=== PATIENT | female | born 1955 | race Caucasian/White ===

== ENCOUNTER 2021-03-01 15:24 | Inpatient (IN) | payer BC ==
[~2021-03-01] VITALS: Ht 162.6 cm; Wt 64.6 kg
--- OUTSIDE RECORDS SUMMARY | 2021-03-01 15:26 | XMS ---
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 CARE PROVIDERS There are no care providers on record at this time. Marko has no Care Guidelines for this patient. Angela VISIT COUNT (12 MO.) 1 ADONAY Campa TOTAL 1 NOTE: Visits indicate total known visits. ED/UCC VISIT TRACKING (12 MO.) 03/01/2021 15:24 ADONAY Veliz OR TYPE: Emergency COMPLAINT: - COLD SYMPTOMS INPATIENT VISIT TRACKING (12 MO.) No inpatient visits to display in this time frame [email or web address]
[2021-03-01] MEDS ORDERED: ASPIR-TRIN325 MG PO (15:38)
[2021-03-01] MEDS ORDERED: CARVEDILOL25 MG PO (15:38)
[2021-03-01] MEDS ORDERED: NIACIN500 M1 PO (15:38)
[2021-03-01] MEDS ORDERED: METFORMIN HCL1000 MG PO (15:38)
[2021-03-01] MEDS ORDERED: JANUVIA100 MG PO (15:38)
[2021-03-01] MEDS ORDERED: VENTOLIN HFA18 GM INH (15:39)
[2021-03-01] MEDS ORDERED: ALPRAZOLAM1 MG PO (15:39)
--- NOTE | 2021-03-01 18:46 | NUR ---
PT TO THE FLOOR FROM ER VIA STRETCHER. PT ABLE TO SELF TRANSFER TO BED. VSS ON 2L O2. ADMISSION AND ASSESMENT COMPLETE. IV ANTIVIRAL INFUSING PER PROVIDER ORDER. PT RESTING SAFELY IN THE BED W/ CALL LIGHT IN REACH
--- NOTE | 2021-03-01 18:46 | EKG ---
[facility] [address] [place], [place] [address] Signed Normal sinus rhythm Inferior infarct , age undetermined Anterior infarct , age undetermined ST \T\ T wave abnormality, consider lateral ischemia Abnormal ECG No previous ECGs available Confirmed by ARPAN CISNEROS DO ([id number]) on 03/01/2021 6:46:27 PM Electronically Signed By: ARPAN CISNEROS DO 03/01/21 1846 PATIENT NAME: MARCUS CHRISTOPHER Electrocardiogram DATE OF : 59 PHYSICIAN: ARPAN CISNEORS DO REPORT #: [id number] REPORT IS CONFIDENTIAL AND NOT TO BE RELEASED WITHOUT AUTHORIZATION
--- NOTE | 2021-03-01 19:37 | NUR ---
RECEIVED REPORT, PT IS RESTING ON R SIDE FACED AWAY FROM DOOR. RESPIRATIONS ARE EVEN AND NONLABORED. CALL LIGHT IS CLOSE.
--- NOTE | 2021-03-01 20:20 | NUR ---
CALLED PT SON STACEY POSADA BACK HE WANTED AN UPDATE. INFORMED HIM THAT WE WOULD DISCUSS WITH PT AND GET BACK TO HIM HE IS NOT ON THE CONTACT LIST. HE STATES EMILIO POSADA, WHO IS LISTED ON THE FS IS "". ENCOURAGED HIM TO HAVE HIS MOM CHANGE THE LISTING WHEN SHE IS BETTER.
--- NOTE | 2021-03-01 21:30 | NUR ---
DISCUSSED WITH PT, SON'S REQUEST. SHE SAID "I DON'T CARE WHO CALLS, TELL THEM ALL", TOLD PT THAT WE WOULD JUST INFORM HER SON STACEY POSADA, AND HE CAN INFORM OTHER FAMILY MEMBERS. CALLED SON @ [phone], UPDATED HIM. PRIOR TO THIS CALL BACK TO HIM, HE CALLED THE ED AND WAS "SHORT WITH THEM" THEY COULD NOT GIVE HIM ANY INFORMATION, PER BUSINESS SUPPORT PROFESSIONAL YOJANA. INFORMED YOJANA THAT THE CALL WAS MADE.
--- NOTE | 2021-03-01 22:35 | NUR ---
IN ROOM TO ASSESS PT AND ADMINISTER MEDICATIONS. PT DENIES PAIN BUT DOES STATE SHE HAS SOME ACID REFLUX TYPE DISCOMFORT. SHE DENIES SOB AND HAS OCCASIONAL COUGH. LR IS HANGING AND INFUSING FINE. PT STATES SHE HAS FELT DIZZY AT HOME AND FELL BACKWARD WHILE UP TO THE BATHROOM. ADVISED PT TO CALL WHEN SHE NEEDS TO USE THE RESTROOM. BED ALARM IS ON. CALL LIGHT IS CLOSE. PT DENIES FURTHER NEEDS.
--- NOTE | 2021-03-01 23:01 | NUR ---
CALL LIGHT SOUNDED. PT STOOD UP BY SIDE OF BED TO THROW AWAY TRASH. REMINDED PT THAT SHE NEEDS TO CALL AND NOT GET OUT OF BED ON HER OWN. PT STATES UNDERSTANDING AND DENIES FURTHER NEEDS. BED ALARM IS ON AND CALL LIGHT IS CLOSE.
--- NOTE | 2021-03-02 00:34 | NUR ---
BED ALARM SOUNDED, PT ASKED FOR HELP TO RESTROOM AND SOMETHING TO SLEEP. ASSISTED PT TO RESTROOM AND BACK TO BED. ADVISED PT WE DO NOT HAVE ANY SLEEP AIDS AVAILABLE AND OFFERED MEDICATION FOR COUGH. PT DENIES THE ROBITUSSIN/CODINE SAYS IT WILL MAKE HER ITCH. PT DENIES FURTHER NEEDS. CALL LIGHT IS CLOSE AND BED ALARM IS ON. REMOVED PT FROM O2 AT SHE WAS AT 90% RA. PLACED HER BACK ON 2LNC.
--- NOTE | 2021-03-02 03:45 | NUR ---
PATIENT CALLED TO USE THE BATHROOM. SBA. PATIENT IS BACK IN BED.
--- NOTE | 2021-03-02 03:50 | NUR ---
IN TO CHECK ON PT AFTER SHE WAS UP TO USE RESTROOM. PT STATES SHE HAS A LITTLE SOB WHILE UP AND MOVING BUT STATES IT IS BETTER THAN IT WAS AT HOME. PT DENIES PAIN AND DENIES NEEDS. CALL LIGHT IS CLOSE.
--- NOTE | 2021-03-02 05:04 | NUR ---
PT'S IV WAS BEEPING, IT IS NOW INFUSING FINE. PT IS RESTING WITH EYES CLOSED, RR IS EVEN AND NONLABORED. CALL LIGHT IS CLOSE.
--- NOTE | 2021-03-02 05:16 | NUR ---
PT CALLED FOR ASSISTANCE TO RESTROOM, SHE DENIES FURTHER NEEDS. CALL LIGHT IS CLOSE AND BED ALARM IS ON.
--- NOTE | 2021-03-02 07:30 | NUR ---
RECEIVED REPORT AROUND 0700, PT WAS IN BED SLEEPING. NO NEW CONCERNS WERE NOTED.
--- NOTE | 2021-03-02 09:00 | NUR ---
ALL LOBES ARE DIMINISHED, LOWER LOBES ARE TIGHT WITH LITTLE AIR MOVEMENT HEARD. PT STATED THAT SHE FEELS VERY WEAK AND FOOGY IN THE HEAD. PT ALSO STATED THAT SHE CANNOT THINK CLEARLY. OTHERWISE NO NEW CONCERNS WERE NOTED WITH FIRST ASSESSMENT.
--- NOTE | 2021-03-02 10:00 | NUR ---
PT IN ROOM SLEEPING ON HER RIGHT SIDE. WILL CONTINUE TO MONITOR.
--- NOTE | 2021-03-02 10:16 | NUR ---
Medications reconciled using pharmacy records and patient interview
--- NOTE | 2021-03-02 12:15 | NUR ---
LOBES STILL DIMINISHED AND TIGHT. PT EATING LUNCH AT THIS TIME. BG'S HAVE BEEN ELEVATED SINCE ARRIVAL AND MD ORDERED ADDITIONAL INSULIN FOR COVERAGE. NO NEW COCNERNS WERE NOTED WITH THIS ASSESSMENT. WILL CONTINUE TO MONITOR.
--- NOTE | 2021-03-02 13:00 | NUR ---
Spoke with pt and she states she lives in shed/shack on her grandson's grandparents property. She assists them. No steps in. Pt is difficult to follow and is hard to understand at times. She states she does not use any DME. Per Rn's she is impulsive and requires a bed alarm. Attempted to call emergency contact and unable to reach. Pt is on 022l and states she will use [facility] on dc if she requires 02. States she gets her meds through Dr. Bobby in [place], is unable to state pharm. Will attempt to reach family tomorrow.
--- NOTE | 2021-03-02 14:33 | NUR ---
PRT IN ROOM ON THE PHONE. NO NEW CONCERNS HAVE BEEN NOTED SO FAR.
--- NOTE | 2021-03-02 17:43 | NUR ---
FAMILY DROPPED OFF A BAG WITH RAMDOM MEDICATIONS FOR PT. PT WAS ADVISED THAT ALL MEDICATIOS WILL BE LOCKED IN SAFE. SECURITY ESVIN TOOK SEALED ENVELOPE WITH MEDS TO SAFE.
--- NOTE | 2021-03-02 17:45 | NUR ---
PATIENT UP TO BR, 1PA. PATIENT UNSTEADY ON HER FEET, REDIRECTED EASILY. PATIENT BACK TO SIDE OF BED FOR DINNER, HAIR COMBED AND BRAIDED. FAMILY DELIVERED PERSNOAL BELIONGINGS TO HOSPITAL, [facility]. CALL LIGHT IN REACH, BED ALARM ON FOR SAFETY. NO OTHER NEEDS AT THIS TIME
--- NOTE | 2021-03-02 18:22 | NUR ---
PT ADMITTED TO HAVING MEDICATIONS IN BOTH HER BACKPACKS. WILL GET ENVELOPE AND HAVE THEM PUT INTO SAFE. ASSESSMENT WAS UNCHANGED SINCE THIS MORNING. NO NEW CONCERNS NOTED OVERALL OTHER THAN THE MEDICATIONS IN HER BAGS...
--- NOTE | 2021-03-02 18:39 | NUR ---
PT HAS REMAINED ON 2L O2 NC ALL DAY. LOBES ARE DIMN AND TIGHT AT TIMES. PT APPEARED DRWOSY AND FOGGY IN THE HEAD ALL SHIFT TODAY. BED ALARM IS STILL NEEDED SINCE PT IS IMPULSIVE. PO INTAKE IS WDL, URINE OUTPUT IS WDL. FAMILY IN THE AFTERNOON SENT A BAG FULL OF MEDICATIONS INCLUDING XANAX TO THE WAREHOUSE ADMINISTRATOR. MEDICATIONS WERE PUT INTO SAFE. PT ALSO STATED THAT SHE HAS MEDICATIONS IN HER BACKPACKS BUT DENIED TAKING ANY. WILL PUT THEM IN SAFE ALSO.
--- NOTE | 2021-03-02 18:51 | NUR ---
BED ALARM SOUNDING, PATIENT STARTING TO GET OUT OF BED. THIS WOODENWARE ASSEMBLER INTO ROOM FOR ASSISTANCE TO BR. PATIENT QUESTIONED WHY THE ALARM WAS ON AND WOULD SHE HAVE ONE IN CHAIR. THIS PATIENT EXPLAINED THE ALARMS ARE FOR HER SAFETY, PATIENT UNDERSTANDS. PATIENT NOW SITTING UP IN CHAIR, ALARM ON, AND BEDSIDE TABLE IN FRONT. CALL LIGHT AND PERSONAL ITEMS WITHIN REACH
--- NOTE | 2021-03-02 19:13 | NUR ---
RECEIVED REPORT, PT IS AWAKE IN CHAIR WITH ALARM ON AND CALL LIGHT IS CLOSE.
--- NOTE | 2021-03-02 19:40 | NUR ---
CHAIR ALARM SET OFF, PT PUT SELF BACK TO BED, THIS MUSIC GRAPHER IN TO TURN OFF ALARM, LET PT KNOW WE WILL START VITALS AND EVENING MEDS SOON, PT STATES SHE HAS NO FURTHER NEEDS AT THIS TIME
--- NOTE | 2021-03-02 20:53 | NUR ---
IN TO CHECK ON PT, SHE GOT UP AND CHAIR ALARM WAS NOT AUDIBLE FROM RN STATION SHE HAD SPILLED WATER ON THE FLOOR AND WAS TRYING TO STRETCH IV LINE TO THE RESTROOM. ASSISTED PT TO USE RESTROOM AND GET BACK INTO BED. PT IS ORIENTED BUT JUST APPEARS TO BE DROWSY. PT ASKED FOR XANAX, ADVISED PT THE DR ORDERS HAVE CHANGED DUE TO HER MENTAL STATUS TO ONLY TWICE DAILY AND SHE DID NOT INSIST ON IT. COMPLETED ASSESSMENT AND GAVE PT FRESH WATER. PT DENIES SOB BUT STATES IT COMES AND GOES. PT DENIES PAIN AT THIS TIME. VS TAKEN AND ENTERED. PT DENIES FURTHER NEEDS, CALL LIGHT IS CLOSE, BED ALARM IS ON. PT'S BELONGINGS ARE NOT NEAR HER, WILL RETURN AND CHECK BAG FOR PILLS TO LOCK IN SAFE. PT AGREE'S TO CALL FOR HELP OUT OF BED.
--- NOTE | 2021-03-02 22:47 | NUR ---
PT'S BED ALARM SOUNDED AT 2155, SHE WAS STANDING AT BEDSIDE WHEN THIS RN CAME TO THE DOOR. ADVISED PT TO SIT DOWN WHILE THIS RN GOWNED UP TO COME IN THE ROOM. ONCE IN ROOM REMINDED PT SHE NEEDS TO USE CALL LIGHT AND CANNOT GET UP WITHOUT ASSISTANCE. THEN ASSISTED PT TO RESTROOM AND BACK TO BED. ADMINISTERED EVENING MEDICATIONS ALONG WITH 3 UNITS OF S/S INSULIN FOR BG OF 183. PT STATES SHE HAS A LITTLE NAUSEA AND SAYS ITS FROM THE INSULIN, SHE DENIES NEED FOR ZOFRAN AT THIS TIME. DISCUSSED THE MEDICATIONS IN PTS BAG, SHE STATES SHE ONLY HAS A FEW THINGS IN HER BAG INCLUDING VIT D, ASPIRIN AND B6. ASKED PT IF THIS RN CAN GET THE PILL BOTTLES OUT AND PUT THEM IN BAGS TO GO IN THE SAFE AND PT AGREED STATING SHE IS NOT USING THEM ANYWAY. 2 BAGS OF BOTTLES COLLECTED FROM PT'S BELONGINGS AND RECORDED ON BAGS. MANY BOTTLES WERE UNLABLED AND SOME WERE IN ZIPLOCK BAGS. WHEN QUESTIONED, PT STATES SHE DID NOT PLAN ON BRINGING ALL HER MEDS WITH HER TO THE HOSPITAL BUT WAS ON HER WAY [place]. CONVERSATIONS WITH PT ARE HARD TO FOLLOW AT TIMES. PT SIGNED BOTH MED ENVELOPES AND AGREED TO HAVING US PUT THEM IN THE SAFE. THE ONLY PILLS COUNTED WERE THE ONES LABELS HYDROCODONE/APAP AND THE NUMBER WAS MARKED ON THE BAG. PT DENIES NEEDS AT THIS TIME. CALL LIGHT IS CLOSE AND BED ALARM IS ON.
--- NOTE | 2021-03-02 22:52 | NUR ---
LEYLA, PT PRIMARY RN, REMOVED AN ADDITIONAL 2 BAGS OF MEDICATIONS, AND PLACED INTO A NON CONTAMINATED BAG AND WILL BE PLACED IN THE SAFE. BAGS # [id number] SEALED BAGS PLACED INTO A CLEAN PT BAG TO TAKE TO THE SAFE PT IS COVID POSITIVE.
--- NOTE | 2021-03-02 22:53 | NUR ---
PT'S BED ALARM SOUNDED, GT MANTILLA CHECKED ON PT AND SAID SHE WAS JUST SITTING AT EDGE OF BED AND DENIES NEEDS AT THIS TIME.
--- NOTE | 2021-03-03 00:53 | NUR ---
PT IS RESTING WITH EYES CLOSED, RR IS EVEN AND NONLABORED. CALL LIGHT IS CLOSE AND BED ALARM IS ON.
--- NOTE | 2021-03-03 02:44 | NUR ---
PT IS RESTING WITH EYES CLOSED, RR IS EVEN AND NONLABORED. CALL LIGHT IS CLOSE AND BED ALARM IS ON.
--- NOTE | 2021-03-03 03:56 | NUR ---
PT IS RESTING WITH EYES CLOSED, RR IS EVEN AND NONLABORED. CALL LIGHT IS CLOSE AND BED ALARM IS ON.
--- NOTE | 2021-03-03 06:16 | NUR ---
IN ROOM TO CHECK ON PT, SHE WAS RECENTLY UP TO THE RESTROOM WITH GT MANTILLA AND VS TAKEN. PT DENIES NEEDS AT THIS TIME. SHE REMAINS ON 2LNC. SHE IS LAYING ON HER R SIDE AT THIS TIME. CALL LIGHT IS CLOSE AND IV IS INFUSING FINE.
--- NOTE | 2021-03-03 09:00 | NUR ---
REPORT RECEIVED FROM NIGHT RN AND PT. CARE RESUMED. PT. IS ALERT AND ORIENTED TO ALL BUT DATE. SLOW TO RESPOND AND ANSWERS TO QUESTIONS ARE INAPPROPRIATE AT TIMES. PT. STATES SHE IS WITHDRAWING FROM PROZAC AND IT IS MAKING HER NERVOUS. IV SITE FLUSHES WELL. PT. ON 2.5L NC AND O2 SAT IS 90%. AMBULATED WITH SBA TO THE BATHROOM TO VOID. DENIES DIZZINESS. PT. EDUCATED ON PRONING AND BREATHING. LUNGS DIM. THROUGHOUT. PT. LEFT RESTING IN CHAIR WITH ALARM ON AND CALL LIGHT IN REACH.
--- NOTE | 2021-03-03 12:08 | NUR ---
PT. ASSISTED WITH REPOSITIONING AND XANAX ADMIN PER PATIENT REQUEST. PT. BEGAN TO CRY AND STATED HER SON'S GRANDFATHER ALSO HAS COVID AND WAS TAKEN VIA AMBULANCE TO THE HOSPITAL JUST NOW. PT. CONSOLED. DENIED FURTHER NEED AND LEFT RESTING WITH CALL LIGHT IN REACH.
--- NOTE | 2021-03-03 13:14 | NUR ---
Was able to contact Nicky's son, Jelani, by phone. He states his mom lives on the weekends at his grandparents house [facility]. 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 Jelani states she was visiting family in [place] and on return became sick and checked into [facility]. Her phone was and family were searching for her for 4 days. He has many questions as to her health and updated she is feeling better today and on . He states she uses [facility] for a pharmacy and sees Ana De Leon in [place]. She will return [facility] and we can call him and he or brother will delivery driver/customer service her home.
--- NOTE | 2021-03-03 14:22 | NUR ---
PT. IS ALERT AND ORIENTED TO ALL BUT DATE. SHE APPEARS ANXIOUS ABOUT HER GRANDFATHER AND ASKS REPEATEDLY WHEN SHE CAN HAVE 1MG OF XANAX. PT. INFORMED OF MED SCHEDULE. CRACKLES PRESENT IN LLL. ON 2.5L NC AND O2 SAT IS 90%. PT. ENCOURAGED TO PRONE BUT REFUSES AT THIS TIME. IV SITE WNL. PT. GIVEN WATER AND LEFT RESTING WITH CALL LIGHT IN REACH.
--- NOTE | 2021-03-03 14:30 | NUR ---
Notified by Dr. Peterson pt will more than likely be able to dc tomorrow. Spoke with pt and she states she has no place to go. Asked about her cabin and she states she cannot return there is the grandmother is isolating Nicky has CHF. Asked her if she could begin looking for a place and I will call her son.
--- NOTE | 2021-03-03 15:00 | NUR ---
PT. STATES SHE DROPPED XANAX TABLET ON THE FLOOR FROM EARLIER. SHE STATES SHE DID NOT TAKE IT AND HELD ONTO IT. AFTER [place] WORKER GOWNED UP TO ENTER THE ROOM THE TAB WAS NO LONGER ON THE FLOOR. PT. STATES SHE THREW IT IN TRASH. NO TABLET IN TRASH. THIS NURSE TOLD PT. SHE COULD NOT HANG ON TO MEDICATIONS OR THE RN COULD NO LONGER ADMINISTER TO HER.
--- NOTE | 2021-03-03 15:42 | NUR ---
Called and spoke with son and he states he can call some family members [place] and also her boss. He will call back.
--- NOTE | 2021-03-03 16:12 | NUR ---
BED ALARM SOUNDED. PT. FOUND TRYING TO GET OUT OF BED AGAIN. SBA TO THE BATHROOM. HER SPEECH IS SLURRED AND SLOW TO RESPOND. PAPER BAG FOUND ON THE FLOOR NEAR HER BED LABELED HYDROCODONE. MEDS COUNTED WITH CHARGE NURSE AND PLACED IN SAFE.
--- NOTE | 2021-03-03 16:51 | NUR ---
THIS NURSE AND H[employer]CHO[employer] LIBRARY MEDIA SPECIALIST LOOKED THROUGH BELONGINGS WITH PT. CONSENT. 2 NEW BOTTLES OF TABLETS FOUND WITHOUT LABELS. GIVEN TO CHARGE TO PLACE IN SAFE. PT. STATES HYDROCODONE WAS PRESCRIBED FOR SHOULDER PAIN
--- NOTE | 2021-03-03 19:02 | NUR ---
RECEIVED REPORT, PT IS RESTING WITH EYES CLOSED, RR IS EVEN AND NONLABORED. CALL LIGHT IS CLOSE AND BED ALARM IS ON.
--- NOTE | 2021-03-03 20:00 | NUR ---
PT'S BED ALARM SOUNDED. SHE IS SITTING AT EDGE OF BED. TOLD PT TO WAIT UNTIL WE CAN GOWN UP AND GET IN ROOM. JOSE RAFAEL DEL REAL ENTERED ROOM TO ASSIST PT AND THIS RN WILL RETURN WITH MEDS SOON.
--- NOTE | 2021-03-03 20:00 | NUR ---
pt bed alarm set off, in to assist pt to the toilet, pt also having emesis at this time, recorded, pt voided and returning back to bed, bed alarm reset, vitals taken at this time, water refilled for pt, no further needs at this time, primary rn aware of pt's n/v as well
--- NOTE | 2021-03-03 20:51 | NUR ---
COMPLETED ASSESSMENT AND ADMINISTERED MEDICATION. PT REPORTS HAVING SOME EMESIS. ADMINISTERED ZOFRAN FOR NAUSEA. PT ALSO STATES SHE HAS 8/10 BODYACHES AND HEADACHE. ADMINISTERED TYLENOL. ALSO ADMINISTERED ROBITUSSIN FOR COUGH AND XANAX FOR ANXIETY. PT ALSO REPORTS A SORE THROAT, ADMINISTERED A CEPACOLE ROD. PT STATES SHE IS WEAK AND SAYS SHE HAS SOB ON AND OFF. SHE APPEARS LESS DROWSY THAN SHE WAS LAST NIGHT. IV IS INFUSING FINE AND PT DENIES FURTHER NEEDS AT THIS TIME. CALL LIGHT IS CLOSE.
--- NOTE | 2021-03-03 23:24 | NUR ---
IV PUMP WAS BEEPING, IV IS NOW INFUSING FINE. PT IS RESTING WITH EYES CLOSED, RR IS EVEN AND NONLABORED. CALL LIGHT IS CLOSE AND BED ALARM IS ON. PT IS RESTING ON BACK AT TIME.
--- NOTE | 2021-03-04 01:45 | NUR ---
IV PUMP WAS BEEPING. IT IS NOW INFUSING FINE. PT IS RESTING WITH EYES CLOSED, RR IS EVEN AND NONLABORED. CALL LIGHT IS CLOSE AND BED ALARM IS ON.
--- NOTE | 2021-03-04 03:29 | NUR ---
PT'S BED ALARM SOUNDED, SHE SAT AT EDGE OF BED UNTIL THIS RN COULD GOWN UP AND GET IN ROOM. ONCE IN ROOM ASSISTED PT TO THE RESTROOM AND SHE VOIDED 900MLS. SHE IS NOW BACK IN BED AND DENIES SOB AND PAIN. PT REPORTS SLEEPING WELL AND DENIES NEEDS AT THIS TIME. CALL LIGHT IS CLOSE AND BED ALARM IS ON. IV IS INFUSING FINE.
--- NOTE | 2021-03-04 04:46 | NUR ---
IN ROOM TO FIX BEEPING IV, IT IS NOW INFUSING FINE. PT IS RESTING WITH EYES CLOSED, RR IS EVEN AND NONLABORED. CALL LIGHT IS CLOSE AND BED ALARM IS ON.
--- NOTE | 2021-03-04 06:00 | NUR ---
BERTA HINTONINE IN ROOM TO TAKEN VS & I&O'S. BED ALARM IS ON.
--- NOTE | 2021-03-04 08:00 | NUR ---
REPORT RECEIVED FROM NIGHT RN AND PT. CARE RESUMED. PT. IS ALERT AND ORIENTED TO ALL BUT DATE. SHE APPEARS LESS ALTERED MENTALLY THAN YESTERDAY. HER SPEECH IS CLEAR AND SHE ANSWERS QUESTIONS APPROPRIATELY. IV SITE WNL AND FLUSHES WELL. LUNGS DIM. THROUGHOUT BUT DISPOSABLE STETHOSCOPE USED. PT. DENIES SOB AND PAIN. ON 1L NC AND O2 SAT. IS 92%. DISCUSSED POC, MEDS, BREATHING AND SAFETY. LEFT RESTING IN CHAIR WITH ALARM ON AND CALL LIGHT IN REACH.
--- NOTE | 2021-03-04 10:12 | NUR ---
PT. IS USING CALL LIGHT APPROPRIATELY TO REPORT IV BEEPING. DISCONNECTED FOR SHOWER.
--- NOTE | 2021-03-04 10:35 | NUR ---
PATIENT UP TO SHOWER, THIS CAR BLOCKER SBA. NC IN PLACE ON 1L. BACK TO CHAIR, ALARM ON FOR SAFETY. FRESH WATER PROVIDED. VITALS AND I&OS CHARTED. CALL LIGHT AND CELL PHONE IN REACH
--- NOTE | 2021-03-04 10:36 | NUR ---
PATIENT REQUESTS HER SON "MEGAN" BE REMOVED FROM HER CONTACT LIST. ACCORDING TO PATIENT, SONS IS AND BECOMES NERVOUS WHEN CALLS ARE MADE WITH UPDATES REGARDING PATIENTS HEALTH. CHIEF COMMERCIAL OFFICER AND JOSUE KEENE NOTIFIED.
--- NOTE | 2021-03-04 12:14 | NUR ---
PT. BED ALARM TURNED OFF SINCE SHE HAS BEEN USING CALL APPROPRIATELY AND IS FULLY ORIENTED. DISCUSSED SAFETY AND USING CALL LIGHT ANYTIME SHE WANTS TO GET UP.
--- NOTE | 2021-03-04 12:34 | NUR ---
DR CISNEROS CALLED TO SAY PATIENT CAN BE DISCHARGED BUT WILL PROBABLY NEED OXYGEN. HE IS ORDERING HOME OXYGEN QUALIFIER. CALLED PATIENTS SON STACEY [phone]. HE STATES HE WILL NOT BE ABLE TO PICK HER UP. HE HAS NOT BEEN EXPOSED TO COVID AND HAS SMALL KIDS AND DISABLED FAMILY IN HIS HOME. HE STATES SHE LIVES UP [facility] [place]". HE STATES SHE LIVES IN A CABIN "OR SOMETHING LIKE THAT". SAYS HE HASN'T BEEN THERE IN A LONG TIME. STATES THERE IS RUNNING WATER AND ELECTRICITY. HE STATES HER CAR IS AT [facility] WHERE SHE WAS STAYING PRIOR TO COMING TO HOSPITAL. HE STATES IF SHE CAN GET A RIDE THERE SHE CAN DRIVE HERSELF HOME. [place]. SPOKE WITH PATIENT ON ROOM PHONE. SHE STATES "OH I CAN'T GO UP THE [place]. I AM GOING TO GO BACK TO THE HOT". I DISCUSSED SHE PROBABLY CANNOT GO THERE WITH HER COVID POSITIVE DIAGNOSIS. I TOLD HER SHE CAN CALL AND ASK THEM, BUT IT WOULD PUT THE STAFF AND OTHER PUBLIC AT RISK. SHE ASKS IF I CAN CALL. ASKED IF SHE HAD A BACK UP PLAN OF WHERE TO GO. SHE "DOESN'T THINK SO". ASKED WHY IT IS SHE CANNOT GO HOME. SHE STATES "WELL THERE ARE PEOPLE WHO ARE SICK WITH THIS TOO AND I DON'T THINK I SHOULD GO BACK RIGHT NOW. I DISCUSSED THAT IF THEY HAVE COVID SHE DOES NOT HAVE TO WORRY ABOUT GIVING IT TO THEM. PATIENT WAS THERE PRIOR TO COMING TO [facility] TO [facility]. SHE STATES "OH I SEE WHAT YOU MEAN". SHE STATES THEY HAVE HYDRO AND SOLAR POWER. ASKED HER IF THEY PLUG IN APPLIANCES. SHE STATES THEY DO, BUT ONLY SOME OF THE TIME. "SOMETHING ALL THE TIME WOULD PROBABLY NOT WORK". SHE STATES THEY SLEETMUTE IS REAL LOW SO THEIR HYDRO POWER ISN'T WORKING MUCH. I ASKED IF THEY HAD ANY PREFERENCE FOR OXYGEN COMPANIES, SHE DOES NOT. SHE STATES SHE WILL "THINK SOMEMORE ON THIS" AND I WILL CALL OXYGEN PLACES TO SEE IF THE POWER SOURCE WILL BE A PROBLEM AND HOT TO SEE IF COVID PATIENTS CAN STAY. CALLED [facility]. KRISTINA STATES THEY HAVE TRIED USING SOLAR IN THE PAST AND IT DID NOT WORK. SHE SUGGESTS CALLING [facility]. SHE STATES "THEY HAVE HIGHER DUTY EQUIPMENT". CALLED [facility] AND LEFT A MESSAGE. CALLED [facility], DESK STATES THAT THEY CANNOT LET COVID POSITIVE PEOPLE STAY THERE. I DID NOT GIVE PATIENTS NAME. CONVERSATION WAS OVERHEARD BY BRITTANEY DEL REAL. RECEIVED A CALL-BACK FROM MADAI AT [facility]. DISCUSSED THE SITUATION. HE STATES HE WILL CALL BACK AFTER LOOKING AT SOME OPTIONS. CALLED AND UPDATED PATIENT. SHE STATES SHE IS TRYING TO GET HER GRANDPARENTS ON THE PHONE. SHE STATES THEY TOLD HER SON THEY DIDN'T THINK SHE SHOULD COME THERE THEY ARE WORRIED BECAUSE SHE IS ON OXYGEN AND IT IS OUT OF TOWN IF SHE HAD TROUBLE. RECEIVED CALL BACK FROM [facility] THAT THEY WILL BE ABLE TO DO OXYGEN AT HER HOME. THEY WILL HAVE SMALL CONCENTRATOR AND ALSO SOME LARGE BOTTLES FOR BACK UP IF THE ELECTRICITY WERE TO GO OUT. THE BACKUP BOTTLES WOULD BE AROUND 4 DAYS WORTH AT 2LNC. THEY WILL WAIT FOR PAPERWORK TO BE SENT TO THEM. RECEIVED A CALL TRANSFERRED FROM [facility] FROM SON MEGAN. HE STATES THAT HE DOES NOT WANT PATIENT UP THE [place]. HE STATES SHE WAS TOLD BY HER DR THAT SHE SHOULD NOT BE FARTHER THAN 10 MINUTES FROM THE HOSPITAL IF SHE CAUGHT COVID DUE TO "HER HEART CONDITION". DISCUSSED THAT PATIENT HAS BEEN STABLE AND WE ARE NO LONGER NEEDING TO TREAT EXCEPT OXYGEN AND THAT CAN BE USED AT HOME OUTPATIENT. DISCUSSED THAT WE WILL BE GLAD TO ARRANGE THE OXYGEN SENT TO WHEREVER THE PATIENT AND FAMILY WANT HER TO GO. HE WANTED TO KNOW "SO SHE IS OVER THE WORST AND IS BETTER". EXPLAINED THAT SHE HAS BEEN STABLE AND ABLE TO DISCHARGE, BUT WITH COVID SOME PEOPLE JUST SLOWLY GET BETTER AND SOME HAVE MORE PROBLEMS. THAT SHE CAN RETURN ANYTIME THERE ARE CONCERNS OR SHE FEELS LIKE SHE IS HAVING WORSENING SYMPTOMS. I DISCUSSED THAT [facility] HAS PLANS TO ARRANGE OXYGEN SET UP AT HER HOME AND BACK UP OXYGEN IN CASE THE POWER WERE TO GO OUT. HE STATES HE WANTS TO MAKE A COUPLE CALLS IN CASE SHE CAN STAY WITH SOMEONE IN TOWN. I ASKED THAT HE LET US KNOW SOON, IT TAKES TIME TO GET ARRANGEMENTS MADE. HE SAYS HE WILL CALL BACK SOON. THIS PHONE CALL WAS AT 145PM.
--- NOTE | 2021-03-04 13:42 | NUR ---
PT. REQUESTED THAT THIS NURSE ADD SON, MEGAN BACK TO HER CONTACT LIST AND TO HAVE TECHNICAL SUPERVISOR CONTACT HIM. TECHNICAL SUPERVISOR SANDIP CONTACTED HIM.
[2021-03-04] MEDS ORDERED: DEXAMETHASONE6 MG PO (14:22)
--- NOTE | 2021-03-04 14:53 | NUR ---
PT. BROUGHT SNACK. SHE IS ON THE PHONE AND STATES THAT [facility] SHOULD NOT DELIVER O2 TO HOME. IT WILL NOT WORK OUT. STATES SHE IS ON THE PHONE WITH [facility] WHO WILL ASSIST WITH MAKING OTHER ARRANGEMENTS. FIELD HOCKEY AND LACROSSE COACH CALLED AND WILL FOLLOW UP WIHT HER.
--- NOTE | 2021-03-04 15:00 | NUR ---
CALLED SON MEGAN AND LEFT MESSAGE FOR CALLBACK HE HAD SAID ON LAST CALL HE WAS CALLING A FAMILY MEMBER TO SEE ABOUT HER STAYING IN TOWN. SPOKE WITH PATIENT TO SEE IF SHE HAD HEARD ANYTHING NEW. SHE STATES SHE CALLED WORK AND IS WAITING FOR A CALL BACK. CALLED [facility] TO SEE IF THEY GOT CHART AND IF THEY NEEDED ANYTHING ELSE. MESSAGE LEFT FOR CALLBACK.
--- NOTE | 2021-03-04 15:27 | NUR ---
FAXED CLINICALS, RT QUALIFIER AND RX TO [facility]. FAX CONFIRMATION RECEIVED AT 258PM.
--- NOTE | 2021-03-04 16:28 | NUR ---
CHECKED IN WITH PATIENT AT ROOM. STATES SHE SPOKE [facility] AND THEY HAVE GOT HER A ROOM IN TOWN. SHE STATES TO CALL VINEET AT [phone]. CALLED AND SPOKE WITH VINEET. SHE IS ON HER WAY BACK FROM [place]. SHE STATES THEY HAVE MADE ARRANGEMENTS WITH [facility] [employer] FROM [employer] AND THEY WILL TAKE COVID+ PATIENTS IF THEY CANNOT RETURN HOME. THEY HAVE SECURED HER ROOM 239. SHE STATES PATIENT CAN CONTINUE TO WORK WITH THEM FOR HELP. THEY WILL DELIVER FOOD, MEDS, ETC. STATES PATIENT HAS ALL THE PHONE NUMBERS TO CALL. CALLED [facility]. LEFT MESSAGE AGAIN. GOT A CALL BACK FROM [facility] IN ABOUT 10 MINUTES. DISCUSSED CHANGE OF PLANS FOR STAYING IN [place]. HE STATES HE WILL CONTACT [facility]. HE STATES TO LET NIMO [phone] KNOW ETA OF PATIENT GOING TO [facility].
--- NOTE | 2021-03-04 17:20 | NUR ---
[facility] (ONLY TRANSPORT IN TOWN WHO DOES COVID TRANSPORT) WAS CALLED, THEY CANNOT PROVIDE TRANSPORT TODAY AND SHE STATES PROBABLY ANYMORE THEY DO NOT HAVE ENOUGH STAFF. CALLED OUR FACIITY TEAM WHO HAS DONE COVID TRANSPORT IN THE PAST BUT THE CAR AND STAFF ARE NOT AVAILABLE TODAY. CALLED VINEET AT [facility] ON HER CELL AND SHE WAS WITH HER DIRECTOR. THEY ARE UNAWARE OF ANYBODY PROVIDING TRANSPORT. ONLY SUGGESTION WAS EMS. GOT A MESSAGE FROM ANOTHER STAFF MEMBER THAT PATIENT CALLED THEM AND SAID HER FRIEND IS COMING TO TAKE HER DOWN. SHE IS VACCINATED AND WILLING TO TRANSPORT. [facility] SUGGESTED SHE WEAR PPE, PATIENT WEARS PPE AND THEY KEEP WINDOWS OPEN TO AIR WILL FLOW THROUGH. VINEET STATES SHE DELIVERED FOOD TO ROOM AND THAT [facility] WAS THERE TO DELIVER OXYGEN SO THEY SET IT UP. SHE STATES THE HOTEL HAS PROPPED DOOR OPEN FOR PATIENT TO GO STRAIGHT IN. THIS WAS RELAYED TO STAFF AND TO PATIENT.
--- NOTE | 2021-03-04 18:07 | NUR ---
ALL DISCHARGE INSTRUCTIONS REVIEWED WITH PATIENT AND QUESTIONS ANSWERED. MEDS RETURNED TO PT. FROM [facility] AND SIGNED [facility]. PT. LEFT WITH ALL BELONGINGS VIA WHEELCHAIR. IV REMOVED, EDU. PROVIDED. PT. PICKED UP BY FRIEND TO THE [facility].
== END 2021-03-04 17:53 | disposition home or self-care (01) | DRG 177 ==
LOC: ED 15:24 → MS 17:39
PROVIDERS: ADMIT Student in an Organized Health Care Education/Training Program; ATTEND Student in an Organized Health Care Education/Training Program
PROC: 8E0ZXY6 Isolation (ICD-10-PCS; principal; 2021-03-01)
PROC: 3E0333Z Introduction of Anti-inflammatory into Peripheral Vein, Percutaneous Approach (ICD-10-PCS; 2021-03-01)
PROC: XW033E5 Introduction of Remdesivir Anti-infective into Peripheral Vein, Percutaneous Approach, New Technology Group 5 (ICD-10-PCS; 2021-03-01)
DX: U07.1 COVID-19 (principal); J96.01 Acute respiratory failure with hypoxia; J12.82 Pneumonia due to coronavirus disease 2019; E78.5 Hyperlipidemia, unspecified; F41.9 Anxiety disorder, unspecified; E11.65 Type 2 diabetes mellitus with hyperglycemia; I25.10 Atherosclerotic heart disease of native coronary artery without angina pectoris; Z88.0 Allergy status to penicillin; Z79.84 Long term (current) use of oral hypoglycemic drugs; Z79.82 Long term (current) use of aspirin; Z79.899 Other long term (current) drug therapy; Z95.5 Presence of coronary angioplasty implant and graft; Z88.1 Allergy status to other antibiotic agents
CPT/HCPCS: 71045; 80053; 84484; 85007; 85025; 93005; 93010; 94760; 94761; 96374; 97110; 97116; 97162; 99285-25; A9270; C9803; J1100; J1650; J1815; J1885; J2405; J7050; J7121; U0003

== ENCOUNTER 2024-09-17 09:10 | Emergency (ER) | payer MEDICARE, OTHER ==
[~2024-09-17] VITALS: Ht 162.6 cm; Wt 69.9 kg
[~2024-09-17 09:10] MED LIST: ALPRAZOLAM1 MG PO; ASPIR-TRIN325 MG PO; CARVEDILOL25 MG PO; DEXAMETHASONE6 MG PO; JANUVIA100 MG PO; METFORMIN HCL1000 MG PO; NIACIN500 M1 PO; VENTOLIN HFA18 GM INH
[2024-09-17] MEDS ORDERED: fentaNYL citrate 100 MCG/2 ML VIAL IV ONE (09:30)
[2024-09-17 09:50] LABS: EOSINOPHILS 2.7 % (0-6); HEMATOCRIT 39.8 % (35.0-50.0); HEMOGLOBIN 13.5 g/dL (12.0-18.0); LYMPHOCYTES 21.3 % (24-44); MCH 30.1 (27-36); MCV 88.6 fl (81-99); MONOCYTES 8.4 % (0-12); NEUTROPHILS 66.6 % (39-80); PLATELET COUNT 225 K/uL (140-440); RDW 13.3 (10.5-15.0)
[2024-09-17 10:13] LABS: ALBUMIN 3.7 g/dL (3.4-5.0); ALBUMIN/GLOBULIN RATIO 1.28 (1.1-2.4); ANION GAP 10.2 (7-21); BILIRUBIN, TOTAL 0.4 mg/dL (0.2-1.0); BUN/CREATININE RATIO 20.61 (6.0-28.6); CALCIUM 9.4 mg/dL (8.5-10.1); CREATININE, SERUM 1.31 mg/dL (0.55-1.02); MAGNESIUM 2.5 mg/dL (1.8-2.4); POTASSIUM 4.2 mmol/L (3.5-5.1); PROTEIN, TOTAL 6.6 g/dL (6.4-8.2)
[2024-09-17 13:11] VITALS: BP 126/90
--- NOTE | 2024-09-17 16:32 | EKG ---
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
== END 2024-09-17 13:12 | disposition home or self-care (01) ==
LOC: ED 09:10
PROVIDERS: Emergency Medicine
DX: R07.89 Other chest pain (principal); I25.10 Atherosclerotic heart disease of native coronary artery without angina pectoris; I25.2 Old myocardial infarction; E11.9 Type 2 diabetes mellitus without complications; Z95.5 Presence of coronary angioplasty implant and graft; Z88.1 Allergy status to other antibiotic agents; Z79.82 Long term (current) use of aspirin; Z79.84 Long term (current) use of oral hypoglycemic drugs; Z79.899 Other long term (current) drug therapy
CPT/HCPCS: 36415; 71046; 80053; 83735; 83880; 84484; 85025; 93005; 93010; 96374; 99285-25; J3010